=== PATIENT | female | born 1935 | race Caucasian/White ===

== ENCOUNTER 2022-10-02 16:20 | Outpatient (CLI) | payer MEDICARE, BC, SELFPAY ==
[2022-10-02 20:25] LABS: Chloride* 101 mmol/L (96-114); Potassium* 4.2 mmol/L (3.6-5.1); Sodium* 136 mmol/L (135-149)
[2022-10-02 20:28] LABS: Carbon Dioxide* 29 mmol/L (20-32); Creatinine* 0.6 mg/dL (0.5-1.5); Estimated Glomerular Filt Rate 88 ml/min
[2022-10-02 20:29] LABS: Blood Urea Nitrogen* 17 mg/dL (7-30); Calcium* 9.5 mg/dL (8.4-10.6); Glucose* 93 mg/dL (60-115)
== END 2022-10-02 16:21 | disposition home or self-care (01) ==
LOC: NFLDREF 16:22
PROVIDERS: PCP Internal Medicine; Visit Provider Internal Medicine
DX: I10 Essential (primary) hypertension (principal)
CPT/HCPCS: 80048